=== PATIENT | female | born 1985 | race Caucasian/White ===

== ENCOUNTER 2023-12-27 08:03 | Emergency (ER) | payer BC, SELFPAY ==
--- NOTE | 2023-12-27 08:09 | ED.URI ---
HPI - URI/Sore Throat General Chief Complaint: Upper Respiratory Infection Stated Complaint: Sinus Infection Symptoms Time Seen by Provider: 12/27/23 08:09 Source: patient, RN notes reviewed and old records reviewed Mode of arrival: ambulatory Limitations: no limitations History of Present Illness HPI Narrative: 38-year-old female presents to the [facility] with sinus congestion that started last weekend, 5-6 days ago. Patient reports that she started taking Mucinex and Claritin on Saturday, 4 days ago. Still having a runny nose. Denies having fevers, pain. Onset (ago): day(s) (6) Treatments prior to arrival: cold medicine Related Data Allergies Allergy/AdvReac Type Severity Reaction Status Date / Time No Known Allergies Allergy Mild Unverified 12/27/23 08:09 Review of Systems Review of Systems: All systems reviewed & are unremarkable except as noted in HPI and below Constitutional: Constitutional: Reports no additional constitutional complaints Eyes: Eyes: Reports no additional eye complaints ENT: Reports as per HPI, Reports nasal congestion and Reports nasal discharge Cardiovascular: Cardiovascular: Reports no additional cardiovascular complaints, Denies chest pain and Denies dyspnea Respiratory: Respiratory: Reports as per HPI, Denies chest congestion, Reports cough and Denies dyspnea Gastrointestinal: Gastrointestinal: Reports no additional gastrointestinal complaints, Denies abdominal pain, Denies nausea and Denies vomiting Musculoskeletal: Musculoskeletal: Reports no additional musculoskeletal complaints Integumentary/Breasts: Skin/Breast: Reports system reviewed and no additional complaints, except as docu Neurologic: Reports system reviewed and no additional complaints, except as documented Psychiatric: Psychiatric: Reports no additional psychiatric complaints Allergic/Immunologic: Allergic/Immunologic: Reports no additional allergic/immunologic complaints [facility] Past Medical History Medical History (Updated 12/27/23 @ 08:31 by Anastasia Reyes APRN) Patient denies medical problems Social History Social History Smoking packs per day: 0.5 Smoking cigarettes per day: 10.0 Years smoked: 3 Smoking pack-years: 1.50 Smoking status: Former smoker Tobacco type: cigarettes Second hand tobacco smoke exposure: No Smoking end date: 04/22/07 Alcohol intake: never Substance use: never Substance use type: does not use Living arrangements: with family Occupation/Education: occupation Gender identity (if verbalized by the patient): Female Comments At the time of my signature, I reviewed and agree with the nursing past medical, surgical, social, and family history. There is no relevant family history pertinent to the patient complaint. Exam Const: General: cooperative, healthy appearing, comfortable, no acute distress, well developed, alert and well nourished Nutritional Appearance: well nourished Orientation/consciousness: patient oriented x3 Limitations: no limitations HENMT: Head: normal to inspection Ears: hearing grossly normal bilaterally, external ears normal, TM's normal bilaterally, EAC's normal, mastoids normal and no periauricular adenopathy Face/Nose/Sinus: Normal external nose present, Normal nares present, Normal nasal mucous membranes and turbinates present, Nasal discharge present clear bilateral, normal facial exam and face symmetric Face and sinus: normal facial exam and face symmetric Mouth: Yes Normal oral and palatal mucosa present, Yes lip normal and Yes tongue normal Throat: uvula midline, posterior oropharynx abnormal cobblestoning, postnasal drainage and no uvular edema Eyes: General: appearance normal, both eyes and all related structures Alignment and Position: alignment normal Periorbital: periorbital findings normal Pupils: Equal, round and reactive pupils present EOM: EOMs intact bilaterally Neck:
[2023-12-27 08:11] VITALS: BP 121/69; PULSE 90; RESP 16; TEMP 36.2; O2SAT 100
== END 2023-12-27 08:35 | disposition home or self-care (01) ==
PROVIDERS: Emergency Provider Nurse Practitioner; PCP Family Medicine
DX: R09.82 Postnasal drip (principal); J06.9 Acute upper respiratory infection, unspecified; Z87.891 Personal history of nicotine dependence
CPT/HCPCS: 99213; G0463